=== PATIENT | female | born 1955 | race Caucasian/White ===

== ENCOUNTER → 2022-01-01 08:30 | Outpatient (CLI) | payer MEDICARE, BC, SELFPAY ==
[2022-01-01 10:02] LABS: Add Manual Diff / Slide Review NO; Basophils Absolute Auto 100 /uL (0-100); Basophils Percent Auto 2.1 % (0-2); Eosinophils Absolute Auto 400 /uL (0-450); Eosinophils Percent Auto 9.4 % (2-4); Hematocrit 39.8 % (36-46); Hemoglobin 13.9 g/dL (12.0-16.0); Lymphocytes Absolute Auto 1200 /uL (1100-4500); Lymphocytes Percent Auto 25.8 % (25-40); Mean Corpuscular HGB Conc 34.9 % (30-36); Mean Corpuscular Hemoglobin 31.7 PG (26-34); Monocytes Absolute Auto 500 /uL (0-900); Monocytes Percent Auto 11.4 % (3-14); Neutrophils Absolute Auto 2400 /uL (1500-7000); Neutrophils Percent Auto 51.3 % (50-75); Platelet Count 274 X10^3/uL (150-400); Red Blood Cell Count 4.38 X10^6/uL (4.0-5.2); Red Cell Distribution Width 13.3 % (11.6-14.8); White Blood Cell Count 4.8 X10^3/uL (4.5-11.0)
[2022-01-01 11:29] LABS: Alanine Aminotransferase 27 IU/L (<35); Albumin 3.9 g/dL (3.5-5.0); Albumin Globulin Ratio 1.3 (1.0-2.8); Alkaline Phosphatase 91 U/L (38-126); Aspartate Aminotransferase 34 IU/L (14-36); BUN Creatinine Ratio 17.1 (6-22); Bilirubin Total 0.6 mg/dL (0.2-1.3); Blood Urea Nitrogen 13 mg/dL (7-17); Calcium 9.4 mg/dL (8.4-10.2); Carbon Dioxide 31 mmol/L (22-32); Chloride 104 mmol/L (98-107); Cholesterol 158 mg/dL (140-199); Estimated Glomerular Filt Rate > 60 mL/min (>60); Globulin 3.1 g/dL (1.7-4.1); Glucose 80 mg/dL (80-110); HDL Cholesterol 58 mg/dL (40-60); HEMOLYSIS < 15 (0-50); LDL Cholesterol Calculated 91 mg/dL (<100); Potassium 3.8 mmol/L (3.4-5.1); Sodium 140 mmol/L (137-145); Triglycerides 47 mg/dL (35-150)
[2022-01-01 11:40] LABS: Free T3, Triiodothyronine Free 3.43 pg/mL (2.77-5.27); Free T4, Direct Thyroxine 1.57 ng/dL (0.78-2.19)
[2022-01-01 11:54] LABS: Thyroid Stimulating Hormone 6.27 uIU/mL (0.47-4.68)
== END ==
PROVIDERS: PCP Family Medicine; Referring Provider Family Medicine; Visit Provider Family Medicine
DX: E03.9 Hypothyroidism, unspecified (principal); E78.5 Hyperlipidemia, unspecified
CPT/HCPCS: 36415; 80053; 80061; 84439; 84443; 84481; 85025

== ENCOUNTER → 2022-09-06 09:04 | Outpatient (CLI) | payer MEDICARE, BC, SELFPAY ==
[2022-09-06 12:56] LABS: Alanine Aminotransferase 26 IU/L (<35); Albumin Globulin Ratio 1.4 (1.0-2.8); Alkaline Phosphatase 92 U/L (38-126); Aspartate Aminotransferase 25 IU/L (14-36); Bilirubin Total 0.7 mg/dL (0.2-1.3); Blood Urea Nitrogen 17 mg/dL (7-17); Calcium 9.6 mg/dL (8.4-10.2); Carbon Dioxide 34 mmol/L (22-32); Chloride 101 mmol/L (98-107); Estimated Glomerular Filt Rate > 60 mL/min (>60); Globulin 2.8 g/dL (1.7-4.1); Glucose 75 mg/dL (80-110); HEMOLYSIS < 15 (0-50); Sodium 139 mmol/L (137-145); Total Protein 6.8 g/dL (6.3-8.2)
[2022-09-06 13:08] LABS: Add Manual Diff / Slide Review NO; Basophils Absolute Auto 100 /uL (0-100); Basophils Percent Auto 1.2 % (0-2); Eosinophils Absolute Auto 200 /uL (0-450); Hemoglobin 14.3 g/dL (12.0-16.0); Lymphocytes Absolute Auto 1100 /uL (1100-4500); Lymphocytes Percent Auto 20.2 % (25-40); Mean Corpuscular HGB Conc 34.8 % (30-36); Mean Corpuscular Hemoglobin 31.7 PG (26-34); Monocytes Absolute Auto 500 /uL (0-900); Monocytes Percent Auto 8.8 % (3-14); Neutrophils Absolute Auto 3600 /uL (1500-7000); Neutrophils Percent Auto 65.8 % (50-75); Platelet Count 276 X10^3/uL (150-400); Red Blood Cell Count 4.51 X10^6/uL (4.0-5.2); Red Cell Distribution Width 13.3 % (11.6-14.8); White Blood Cell Count 5.5 X10^3/uL (4.5-11.0)
[2022-09-06 13:27] LABS: TSH w/ Reflex to FT4 0.19 uIU/mL (0.47-4.68)
[2022-09-06 14:18] LABS: Free T4, Direct Thyroxine 1.46 ng/dL (0.78-2.19)
[2022-09-07 02:07] LABS: x Labcorp Estim. Avg Glu (eAG) 111 mg/dL (.); x Labcorp Hemoglobin A1c 5.5 % (4.8-5.6)
== END ==
PROVIDERS: PCP Family Medicine; Referring Provider Family Medicine; Visit Provider Family Medicine
DX: E78.2 Mixed hyperlipidemia (principal)
CPT/HCPCS: 36415; 80053; 83036; 84439; 84443; 85025

== ENCOUNTER → 2022-09-10 13:21 | Outpatient (CLI) | payer MEDICARE, BC, SELFPAY ==
[2022-09-10 15:40] LABS: Collection Time Urine 24 Hours; Potassium 24 Hour Urine 74 mmol/day (25-125); Potassium Urine Random 26.5 mmol/L; Sodium 24 Hour Urine 193 mmol/day (40-220); Sodium Urine Random 69 mmol/L (30-90); Total Volume Urine 2800 mL
[2022-09-10 15:44] LABS: Calcium 24 Hour Urine 403 mg/day (100-300); Calcium Urine Random 14.4 mg/dL; Collection Time Urine 24 Hours; Phosphorous 24 Hour Urine 1025 mg/day (400-1300); Phosphorous Urine Random 36.6 mg/dL; Total Volume Urine 2800 mL
[2022-09-13 12:41] LABS: Urine Oxalates 5 mg/L (Undefined); Urine Oxalates 24 hour 14 mg/24 hr (4-31)
[2022-09-14 13:08] LABS: Citrate 24 hour Urine 78 mg/L (Undefined)
== END ==
PROVIDERS: PCP Family Medicine; Referring Provider Family Medicine; Visit Provider Family Medicine
DX: N20.0 Calculus of kidney (principal)
CPT/HCPCS: 82340; 82507; 83945; 84105; 84133; 84300

== ENCOUNTER → 2022-11-15 11:24 | Outpatient (CLI) | payer MEDICARE, BC, SELFPAY ==
[2022-11-15 13:15] LABS: TSH w/ Reflex to FT4 0.07 uIU/mL (0.47-4.68)
[2022-11-15 18:04] LABS: Free T4, Direct Thyroxine 2.33 ng/dL (0.78-2.19)
== END ==
PROVIDERS: PCP Family Medicine; Referring Provider Family Medicine; Visit Provider Family Medicine
DX: E03.9 Hypothyroidism, unspecified (principal)
CPT/HCPCS: 36415; 84439; 84443

== ENCOUNTER → 2023-08-15 09:49 | Outpatient (CLI) | payer MEDICARE, BC, SELFPAY ==
[2023-08-15 11:16] LABS: Protein (Total) Urine Random 19 mg/dL (0-12)
[2023-08-15 11:18] LABS: Hemoglobin A1C% w Est Avg Glu 5.5 % (4.0-6.0)
[2023-08-15 11:21] LABS: Alanine Aminotransferase 25 IU/L (<35); Albumin 4.1 g/dL (3.5-5.0); Albumin Globulin Ratio 1.5 (1.0-2.8); Alkaline Phosphatase 74 U/L (38-126); Aspartate Aminotransferase 27 IU/L (14-36); BUN Creatinine Ratio 19.7 (6-22); Bilirubin Total 0.7 mg/dL (0.2-1.3); Blood Urea Nitrogen 13 mg/dL (7-17); Calcium 9.7 mg/dL (8.4-10.2); Carbon Dioxide 29 mmol/L (22-32); Chloride 108 mmol/L (98-107); Cholesterol 161 mg/dL (140-199); Estimated Glomerular Filt Rate > 60 mL/min (>60); Globulin 2.8 g/dL (1.7-4.1); Glucose 85 mg/dL (80-110); HDL Cholesterol 69 mg/dL (40-60); HEMOLYSIS < 15 (0-50); LDL Cholesterol Calculated 80 mg/dL (<100); Potassium 4.1 mmol/L (3.4-5.1); Sodium 141 mmol/L (137-145); Total Protein 6.9 g/dL (6.3-8.2); Triglycerides 62 mg/dL (35-150)
[2023-08-15 11:49] LABS: TSH w/ Reflex to FT4 1.96 uIU/mL (0.47-4.68)
== END ==
LOC: LAB 09:50
PROVIDERS: PCP Family Medicine; Referring Provider Family Medicine; Visit Provider Family Medicine
DX: Z13.1 Encounter for screening for diabetes mellitus (principal); E03.9 Hypothyroidism, unspecified; R82.998 Other abnormal findings in urine; E78.5 Hyperlipidemia, unspecified
CPT/HCPCS: 36415; 80053; 80061; 83036; 84156; 84443

== ENCOUNTER → 2023-09-17 11:05 | Outpatient (CLI) | payer MEDICARE, BC, SELFPAY ==
[2023-09-17 12:08] LABS: Appearance Urine UA CLEAR; Bilirubin Urine UA NEGATIVE (NEGATIVE); Color Urine UA YELLOW; Glucose Urine UA NEGATIVE (Negative); Ketones Urine UA NEGATIVE (NEGATIVE); Leukocyte Esterase Urine UA 1+ (NEGATIVE); Nitrite Urine UA NEGATIVE (Negative); Occult Blood Urine UA 2+ (Negative); Protein Urine UA NEGATIVE (Negative); Urobilinogen Urine UA 0.2 E.U./dL (0.2)
[2023-09-17 12:10] LABS: pH Urine UA 6.5 (4.5-8.0)
[2023-09-17 12:14] LABS: Urine Volume 10mL (spun)
[2023-09-17 12:15] LABS: Bacteria Urine Moderate (10-30); Culture Indicated Urine Specimen Cultured; RBC Urine 1-5/HPF (0-5/HPF); Squamous Epithelial Cell Urine 1-5 /HPF (0-5/HPF); WBC Urine 5-10/HPF (0-5/HPF)
[2023-09-17 12:32] LABS: Protein (Total) Urine Random 14 mg/dL (0-12)
== END ==
PROVIDERS: PCP Family Medicine; Referring Provider Family Medicine; Visit Provider Family Medicine
DX: R80.9 Proteinuria, unspecified (principal)
CPT/HCPCS: 81001; 84156; 87086

== ENCOUNTER → 2023-10-15 15:04 | Outpatient (CLI) | payer MEDICARE, BC, SELFPAY ==
--- NOTE | 2023-10-15 15:06 | DI.RAD.S_ITS ---
PROCEDURE: XR DEXA AXIAL SKELETON INDICATIONS: Screening COMPARISON: None. FINDINGS: Lumbar Spine: Bone mineral density 0.665 g/cm2, T score -3.5, osteoporosis. Left Hip: Bone mineral density 0.630 g/cm2, T score -2.6, osteoporosis. Left Femoral Neck: Bone mineral density 0.552 g/cm2, T score -2.7, osteoporosis. Right Hip: Bone mineral density 0.581 g/cm2, T score -3, osteoporosis. Right Femoral Neck: Bone mineral density 0.528 g/cm2, T score -2.9 , osteoporosis. Fracture Risk Calculation (when applicable): Not reported due to osteoporosis. (T score greater or equal to -1.0 to: NORMAL) (T score from -1.1 to -2.4: OSTEOPENIA) (T score less than or equal to -2.5: OSTEOPOROSIS) IMPRESSION: Osteoporosis. Follow-up guidelines as follows: Osteoporosis: Consider a repeat DEXA and Vertebral Fracture Assessment (VFA) exam in 2 years or sooner if medically necessary, to reassess this patient's status. Osteopenia: Consider a repeat DEXA in 2-3 years to reassess this patient's status, or if there is a new clinical indication. Normal: Consider a repeat DEXA in 5 years or sooner, or if there is a new clinical indication. All treatment decisions require clinical judgment and consideration of individual patient factors, including patient preferences, comorbidities, previous drug use, risk factors not captured in the FRAX model (e.g., frailty, falls, vitamin D deficiency, increased bone turnover, interval significant decline in bone density ) and possible under- or over-estimation of fracture risk by FRAX. In addition, the NOF Guide recommends that FDA-approved medical therapies be considered in postmenopausal women and men age >= 50 years with a: * Hip or vertebral (clinical or morphometric) fracture * T-score of <=-2.5 at the spine or hip * Ten-year fracture probability by FRAX of >= 3% for hip fracture or >=20% for major osteoporotic fracture. People with diagnosed cases of osteoporosis or at high risk for fracture should have regular bone mineral density tests. For patients eligible for Medicare, routine testing is allowed once every 2 years. The testing frequency can be increased to one year for patients who have rapidly progressing disease, those who are receiving or discontinuing medical therapy to restore bone mass, or have additional risk factors. Dictated by: Andres Mcgraw M.D. on 10/15/2023 at 17:19 Approved by: Andres Mcgraw M.D. on 10/15/2023 at 17:20
== END ==
LOC: RAD 15:05
PROVIDERS: PCP Family Medicine; Referring Provider Family Medicine; Visit Provider Family Medicine
DX: M81.0 Age-related osteoporosis without current pathological fracture (principal)
CPT/HCPCS: 77080

== ENCOUNTER → 2023-12-04 11:03 | Outpatient (CLI) | payer MEDICARE, BC, SELFPAY ==
[2023-12-04 11:50] LABS: Hematocrit 44.2 % (36-46); Hemoglobin 15.2 g/dL (12.0-16.0)
[2023-12-04 11:52] LABS: Appearance Urine UA CLEAR; Bilirubin Urine UA NEGATIVE (NEGATIVE); Color Urine UA YELLOW; Glucose Urine UA NEGATIVE (Negative); Ketones Urine UA NEGATIVE (NEGATIVE); Leukocyte Esterase Urine UA 3+ (NEGATIVE); Nitrite Urine UA NEGATIVE (Negative); Occult Blood Urine UA 1+ (Negative); Protein Urine UA NEGATIVE (Negative); Specific Gravity Urine UA <=1.005 (1.000-1.035); Urobilinogen Urine UA 0.2 E.U./dL (0.2)
[2023-12-04 11:54] LABS: pH Urine UA 6.5 (4.5-8.0)
[2023-12-04 12:05] LABS: Urine Volume 10mL (spun)
[2023-12-04 12:06] LABS: Bacteria Urine Moderate (10-30); Culture Indicated Urine Specimen Cultured; RBC Urine 0-1/HPF (0-5/HPF); Squamous Epithelial Cell Urine 1-5 /HPF (0-5/HPF); WBC Urine 1-5/HPF (0-5/HPF)
[2023-12-04 12:10] LABS: Blood Urea Nitrogen 15 mg/dL (7-17); Calcium 9.9 mg/dL (8.4-10.2); Carbon Dioxide 27 mmol/L (22-32); Chloride 105 mmol/L (98-107); Estimated Glomerular Filt Rate > 60 mL/min (>60); Glucose 85 mg/dL (80-110); HEMOLYSIS < 15 (0-50); Sodium 138 mmol/L (137-145)
[2023-12-04 12:15] LABS: Sodium Urine Random 22 mmol/L (30-90)
== END ==
PROVIDERS: PCP Family Medicine; Referring Provider Student in an Organized Health Care Education/Training Program; Visit Provider Student in an Organized Health Care Education/Training Program
DX: N05.9 Unspecified nephritic syndrome with unspecified morphologic changes (principal); D70.9 Neutropenia, unspecified; D63.1 Anemia in chronic kidney disease; E87.1 Hypo-osmolality and hyponatremia; N30.00 Acute cystitis without hematuria; N25.81 Secondary hyperparathyroidism of renal origin
CPT/HCPCS: 36415; 80048; 81001; 83970; 84300; 85014; 85018; 87086

== ENCOUNTER → 2023-12-25 17:08 | Outpatient (CLI) | payer MEDICARE, BC, SELFPAY ==
[2023-12-25 17:33] LABS: Appearance Urine UA SL CLOUDY; Bilirubin Urine UA NEGATIVE (NEGATIVE); Color Urine UA YELLOW; Glucose Urine UA NEGATIVE (Negative); Ketones Urine UA NEGATIVE (NEGATIVE); Leukocyte Esterase Urine UA 3+ (NEGATIVE); Nitrite Urine UA NEGATIVE (Negative); Occult Blood Urine UA 2+ (Negative); Protein Urine UA NEGATIVE (Negative); Specific Gravity Urine UA <=1.005 (1.000-1.035); Urobilinogen Urine UA 0.2 E.U./dL (0.2)
[2023-12-25 18:49] LABS: Amorphous Sediment Urine 2+; Bacteria Urine Moderate (10-30); Culture Indicated Urine Specimen Cultured; RBC Urine 1-5/HPF (0-5/HPF); Squamous Epithelial Cell Urine 1-5 /HPF (0-5/HPF); Urine Volume 10mL (spun); WBC Urine 30-100/HPF (0-5/HPF)
== END ==
LOC: LAB 17:09
PROVIDERS: PCP Family Medicine; Referring Provider Family Medicine; Visit Provider Family Medicine
DX: Z87.440 Personal history of urinary (tract) infections (principal)
CPT/HCPCS: 81001; 87086

== ENCOUNTER → 2024-01-30 11:44 | Outpatient (CLI) | payer MEDICARE, BC, SELFPAY ==
[2024-01-30 13:07] LABS: BUN Creatinine Ratio 16.7 (6-22); Blood Urea Nitrogen 13 mg/dL (7-17); Calcium 9.8 mg/dL (8.4-10.2); Carbon Dioxide 26 mmol/L (22-32); Chloride 106 mmol/L (98-107); Estimated Glomerular Filt Rate > 60 mL/min (>60); Glucose 100 mg/dL (80-110); HEMOLYSIS < 15 (0-50); Potassium 4.5 mmol/L (3.4-5.1); Sodium 137 mmol/L (137-145)
== END ==
PROVIDERS: PCP Family Medicine; Referring Provider Student in an Organized Health Care Education/Training Program; Visit Provider Student in an Organized Health Care Education/Training Program
DX: N05.9 Unspecified nephritic syndrome with unspecified morphologic changes (principal)
CPT/HCPCS: 36415; 80048

== ENCOUNTER → 2024-03-27 | Outpatient (CLI) | payer MEDICARE, BC, SELFPAY ==
--- NOTE | 2024-03-27 13:22 | DI.CT.S_ITS ---
PROCEDURE: CT LUNG LOW DOSE SCREENING INDICATIONS: tobacco use history, lung CA screening TECHNIQUE: Noncontrast 2.0-2.5 mm thick sections acquired from the pulmonary apices to the posterior costophrenic angles. 7 mm thick axial MIP, and 5 mm coronal and sagittal reformats were then acquired. For radiation dose reduction, the following was used: automated exposure control, adjustment of mA and/or kV according to patient size. COMPARISON: None. FINDINGS: Image quality: Diagnostic. Lower Neck: No enlarged lymph nodes. Thyroid: No thyroid nodules which require sonographic follow up, per consensus guidelines. Axillae: No enlarged lymph nodes. Chest Wall: Unremarkable. Bones: No acute vertebral body compression fractures. Multilevel spondylitic changes throughout the imaged spine. No suspicious osseous lesions. Lungs and Pleura: No pneumothorax or pleural effusions. Mild upper lobe predominant centrilobular emphysematous changes. Bibasilar atelectasis. No suspicious septal thickening or nodularity. Visualized airways appear clear. There is a 6 mm somewhat triangular shaped nodule in the anterior aspect of the right middle lobe which appears to be within the minor fissure (168/series 3) and likely represents an intra fissural lymph node. There is a 3 mm medial left upper lobe nodule (92/series 3). Faint 6 mm left apical ground-glass nodule (58/series 3). Heart: Heart size is normal. No pericardial effusion. Thoracic Vessels: The aorta and pulmonary arteries demonstrate normal size. Mediastinum and Jennifer: No enlarged lymph nodes. Esophagus: No wall thickening. No hiatal hernia. Upper Abdomen: Visualized upper abdomen solid organs and bowel loops appear normal. IMPRESSION: No suspicious pulmonary nodules. LUNG-RADS 2; continued annual screening, if eligible. Clinically Significant Non-pulmonary Findings: None. Dictated by: Dev Metcalf M.D. on 03/27/2024 at 18:56 Approved by: Dev Metcalf M.D. on 03/27/2024 at 19:03
--- NOTE | 2024-03-27 13:22 | DI.US.S_ITS ---
PROCEDURE: US THYROID INDICATIONS: THYROID SCARRING/RADIATION EXPOSURE. CERVICAL POST NECK LUMP TECHNIQUE: Real-time scanning was performed of the thyroid gland, with image documentation. COMPARISON: None. FINDINGS: Thyroid: Right lobe measures 5.6 x 1.8 x 1.1 cm. Left lobe measures 3.6 x 0.9 x 0.7 cm. Isthmus is 0.2 cm thick. Echotexture is diffusely heterogeneous and markedly hypervascular. There are no dominant nodules or adjacent lymphadenopathy. Corresponding to the palpable focus at the inferior posterior right neck, there is suggestion of a subcutaneous solid focus, isoechoic to adjacent muscle without encapsulation, but some edge shadow defining its margin. This measures 2.1 x 1.2 x 0.7 cm. There is no vascularity. There is posterior enhancement and good definition of the deep margin. IMPRESSION: Diffusely heterogeneous and hypervascular thyroid gland suggesting thyroiditis or Graves disease. Correlate with lab values. The palpable focus corresponds to an area of, or medially adjacent to a muscular bundle. No definite suspicious features. Further evaluation with cross-sectional imaging with contrast is recommended with a marker on the palpable abnormality. ACR TI-RADS definitions and recommendations: TI-RADS 1 (benign): 0 points. FNA not needed. TI-RADS 2 (not suspicious): 2 points. FNA not needed. TI-RADS 3: 3 points. * FNA if 2.5 cm or larger, follow up if 1.5 cm or larger (at 1, 3, and 5 years). TI-RADS 4: 4-6 points. * FNA if 1.5 cm or larger, follow up if 1 cm or larger (at 1, 2, 3, and 5 years). TI-RADS 5: 7 points or more. * FNA if 1 cm or larger, follow up if 0.5 cm or larger (every year for 5 years). Dictated by: Abbi Elaine M.D. on 04/13/2024 at 8:04 Approved by: Abbi Elaine M.D. on 04/13/2024 at 8:13
--- NOTE | 2024-03-27 13:22 | DI.US.S_ITS ---
PROCEDURE: US RENAL COMPLETE INDICATIONS: NEPHROLITHIASIS. H/O LT KIDNEY STENT REMOVED. PROTEINURIA. TECHNIQUE: Real-time scanning was performed of the kidneys and bladder, with image documentation. COMPARISON: Outside Facility, US, US RENAL COMPLETE, 09/24/2017, 16:26. FINDINGS: Right kidney measures 10.9 cm in length. Renal cortex 1.0 cm in thickness. There is a multi septated nonvascular cyst in the inferior cortex measuring 2.2 x 2.0 x 1.5 cm with adjacent probable 3 mm calculus. Additional septated 2.1 x 2.0 x 1.9 cm cyst in the mid renal cortex is noted as well without internal vascularity. No hydronephrosis. Left kidney measures 10.9 cm in length and 1.3 cm cortical thickness. Hypoechoic probable cyst in the mid anterior cortex measures 1.7 x 1.5 x 1.5 cm. Several additional simple cysts present, largest measuring 7 mm. Several echogenic nonobstructive calculi are also present measuring up to 1.9 x 1.4 cm in the inferior cortex Bladder: Pre-void bladder volume is 293 mL. Post-void residual is 65 mL. Pre-void images demonstrate no intraluminal masses or stones. On pre-void images, bilateral ureteral jets are noted with color Doppler interrogation Miscellaneous: No free pelvic fluid. IMPRESSION: Bilateral complex renal cysts and nonobstructing renal calculi without hydronephrosis. Follow-up renal protocol CT could further evaluate complex renal cysts. Approved by: René Dos Santos M.D. on 04/10/2024 at 11:45
== END ==
PROVIDERS: PCP Family Medicine; Referring Provider Family Medicine; Visit Provider Family Medicine
DX: Z12.2 Encounter for screening for malignant neoplasm of respiratory organs (principal); Z87.891 Personal history of nicotine dependence; N20.0 Calculus of kidney; N28.1 Cyst of kidney, acquired; E06.3 Autoimmune thyroiditis; R59.9 Enlarged lymph nodes, unspecified; E03.9 Hypothyroidism, unspecified; R94.6 Abnormal results of thyroid function studies
CPT/HCPCS: 71271; 76536; 76770

== ENCOUNTER → 2024-06-26 08:26 | Outpatient (CLI) | payer MEDICARE, BC, SELFPAY ==
--- NOTE | 2024-06-26 08:27 | DI.US.S_ITS ---
PROCEDURE: US PELVIC COMPLETE INDICATIONS: post-menopausal bleeding TECHNIQUE: Real-time scanning was performed of the pelvic organs, with image documentation. Additional endovaginal scanning was necessary due to incomplete visualization of the adnexal and endometrial structures by transabdominal scanning. COMPARISON: None. FINDINGS: Uterus: Uterus is anteverted and normal in size at 7.3 x 4.0 x 5.3 cm. The myometrium is heterogeneous, with tiny echogenic foci within the ill-defined junctional zone. The endometrium measures 6 mm combined thickness. Ovaries: Right ovary not visualized, likely due to atrophy. Left ovary measures 1.8 x 2.9 x 2.6 cm, volume of 7 mL. There is a simple appearing left ovarian cyst without solid components, measuring 2.3 x 1.8 x 1.3 cm. Other: No pathologic free abdominal or pelvic fluid. IMPRESSION: Endometrium measures 6 mm in combined thickness. Recommend tissue sampling. Suspected diffuse adenomyosis. O-RADS 2 left ovarian cyst, with low likelihood of malignancy. Yearly sonographic surveillance is recommended per consensus guidelines. We strive to produce accurate, complete, and clear reports of imaging services. To assist us in improving patient care, this report was composed using standard report templates and voice recognition software. Therefore, it may contain abnormal punctuation, insertions and/or omissions. Occasional wrong-word or sound-alike substitutions may occur. Though we review the report and make efforts to correct it, we do recommend that the report be read carefully in proper context to recognize any text inaccuracies. Dictated by: Andres Mcgraw M.D. on 06/26/2024 at 13:21 Approved by: Andres Mcgraw M.D. on 06/26/2024 at 13:28
== END ==
PROVIDERS: PCP Family Medicine; Referring Provider Family Medicine; Visit Provider Family Medicine
DX: N95.0 Postmenopausal bleeding (principal); N83.202 Unspecified ovarian cyst, left side; R93.89 Abnormal findings on diagnostic imaging of other specified body structures
CPT/HCPCS: 76830; 76856

== ENCOUNTER → 2024-10-29 16:04 | Outpatient (CLI) | payer MEDICARE, BC, SELFPAY ==
[2024-10-29 18:53] LABS: Coronavirus NL 63 Not Detected (Not Detect); SARS- CoV-2 Not Detected (Not Detecte)
== END ==
PROVIDERS: PCP Family Medicine; Visit Provider Family Medicine
DX: R05.9 Cough, unspecified (principal)
CPT/HCPCS: 87633

== ENCOUNTER → 2024-10-30 10:19 | Outpatient (CLI) | payer MEDICARE, BC, SELFPAY ==
--- NOTE | 2024-10-30 10:20 | DI.RAD.S_ITS ---
PROCEDURE: XR CHEST 2V INDICATIONS: Chest tightness/ cough TECHNIQUE: 2 views of the chest were acquired. COMPARISON: None. FINDINGS: [id number] bilateral diffuse peribronchial thickening with mild patchy right upper lobe and bilateral lower lobe opacities, some of which may be related expiratory result; however, bronchitis, viral infection, bronchopneumonia asthma or other process should be considered. No pneumothorax, no pleural effusion. Cardiopericardial silhouette and pulmonary vasculature within normal limits. IMPRESSION: Peribronchial thickening and patchy opacities as discussed above. Follow-up suggested. If symptoms persist or worsen, CT chest could be performed. Dictated by: Osorio Martin M.D. on 10/30/2024 at 11:42 Approved by: Osorio Martin M.D. on 10/30/2024 at 11:44
== END ==
PROVIDERS: PCP Family Medicine; Referring Provider Family Medicine; Visit Provider Family Medicine
DX: R05.9 Cough, unspecified (principal)
CPT/HCPCS: 71046

== ENCOUNTER → 2024-11-03 09:20 | Outpatient (CLI) | payer MEDICARE, BC, SELFPAY ==
[2024-11-03 10:21] LABS: Blood Urea Nitrogen 16 mg/dL (7-17); Calcium 9.8 mg/dL (8.4-10.2); Carbon Dioxide 28 mmol/L (22-32); Chloride 103 mmol/L (98-107); Estimated Glomerular Filt Rate > 60 mL/min (>60); Glucose 96 mg/dL (70-99); HEMOLYSIS < 15 (0-50); Potassium 4.2 mmol/L (3.4-5.1); Sodium 137 mmol/L (137-145)
== END ==
PROVIDERS: PCP Family Medicine; Referring Provider Family Medicine; Visit Provider Student in an Organized Health Care Education/Training Program
DX: N05.9 Unspecified nephritic syndrome with unspecified morphologic changes (principal)
CPT/HCPCS: 36415; 80048

== ENCOUNTER → 2025-04-13 14:52 | Outpatient (CLI) | payer MEDICARE, BC, SELFPAY ==
--- NOTE | 2025-04-13 14:54 | DI.RAD.S_ITS ---
PROCEDURE: XR CHEST 2V INDICATIONS: Cough TECHNIQUE: 2 views of the chest were acquired. COMPARISON: [facility], CR, XR CHEST 2V, 10/30/2024, 10:15. FINDINGS: Surgical changes and devices: None. Lungs and pleura: Mild perihilar airway thickening. Lungs are otherwise clear without focal consolidation. No pleural effusions or pneumothorax. Mediastinum: Mediastinal contours are normal. Heart size is normal. Bones and chest wall: No suspicious bony abnormalities. Soft tissues appear unremarkable. IMPRESSION: Findings suggestive of bronchitis either infectious or inflammatory in etiology. No focal consolidation. Dictated by: Dev Metcalf M.D. on 04/13/2025 at 16:39 Approved by: Dev Metcalf M.D. on 04/13/2025 at 16:40
== END ==
PROVIDERS: PCP Family Medicine; Referring Provider Nurse Practitioner Family; Visit Provider Nurse Practitioner Family
DX: R05.9 Cough, unspecified (principal)
CPT/HCPCS: 71046